=== PATIENT | male | born 1995 | race Caucasian/White ===

== ENCOUNTER 2018-01-11 01:22 | Emergency (ER) | payer SELFPAY ==
[2018-01-11 01:31] VITALS: BP 168/115
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
== END 2018-01-11 01:49 | disposition home or self-care (01) ==
LOC: EDUNIT#
DX: F10.920 Alcohol use, unspecified with intoxication, uncomplicated (principal); F17.200 Nicotine dependence, unspecified, uncomplicated